=== PATIENT | male | born 1970 | race Caucasian/White ===

== ENCOUNTER 2016-07-13 21:16 | Emergency (ER) | payer BC, OTHER ==
[2016-07-13 22:56] VITALS: BP 123/68; PULSE 89; RESP 18; TEMP 98.1
--- NOTE | 2016-07-13 22:59 | XR ---
EXAM: XR Chest, 2 Views. CLINICAL HISTORY: Reason: Pain TECHNIQUE: Frontal and lateral views of the chest. COMPARISON: No relevant prior studies available. FINDINGS: Lungs: There is fullness in the right hilum. This may represent vasculature accentuated by low lung volume. Early perihilar infiltrate versus underlying lymphadenopathy difficult to exclude. Low lung volumes accentuate pulmonary lung markings. Pleural space: No pleural effusion. No pneumothorax. Heart: Cardiovascular silhouette is within normal limits. Mediastinum: Unremarkable. Bones/joints: Degenerative changes in the thoracic spine. Other findings: Lateral view suboptimal due to patient's arm overlying the anterior aspect of the chest. IMPRESSION: 1. Finding in the right hilar region which may reflect early perihilar infiltrate. This may partly reflect prominent vasculature. Follow-up chest CT recommended to exclude underlying lesion. 2. No effusion. 3. Low lung volume
--- NOTE | 2016-07-13 23:10 | ED ---
URI HPI - General Chief Complaint: Upper Respiratory Infection Stated Complaint: cough Time Seen by Provider: 07/13/16 22:07 Source: patient Mode of arrival: ambulatory Limitations: no limitations - History of Present Illness Initial Comments: Patient is a 46-year-old male chief complaint of a cough for approximately one month. Patient reports that he completed a prescription of amoxicillin 2 weeks ago however, continues to persist. Patient states that whenever he takes a deep breath he feels that he needs to cough. He states that he has had no history of asthma and is a nonsmoker. He denies any blood in his sputum and states it is relatively dry cough. Patient states he's had no fever or chills. He denies any nausea vomiting chest pain or shortness breath. - Related Data Home Medications Medication Instructions Recorded Confirmed Tetrahydrozoline 0.05% Ophth 1 drops OPHTHALMIC DAILY PRN 09/04/14 09/04/14 [Visine Eye Drops] Previous Rx's Medication Instructions Recorded Atorvastatin Calcium [Lipitor] 40 mg PO DAILY #30 tab 09/05/14 Lisinopril [Zestril] 10 mg PO DAILY #30 tab 09/05/14 metFORMIN HCL [Glucophage] 1,000 mg PO AC-BID #60 tab 09/05/14 Albuterol Inhaler [Ventolin Hfa 1 - 2 puff INHALATION Q6HR PRN #1 07/13/16 Inhaler] inhaler Azithromycin [Zithromax Z-pack] 250 mg PO DIRECTED #6 tab 07/13/16 Benzonatate [Tessalon Perles] 100 mg PO TID PRN #15 capsule 07/13/16 Oseltamivir [Tamiflu] 75 mg PO Q12HR #10 cap 07/13/16 methylPREDNISolone Dose Pack 4 mg PO DIRECTED #21 package 07/13/16 [Medrol Dose Pack] Allergies Allergy/AdvReac Type Severity Reaction Status Date / Time No Known Allergies Allergy Verified 07/13/16 21:42 Review of Systems ROS Statement: Those systems with pertinent positive or pertinent negative responses have been documented in the HPI. ROS Other: All systems not noted in ROS Statement are negative. Past Medical History Past Medical History: CVA/TIA, Hypertension Additional Past Medical History / Comment(s): UMBILICAL HERNIA History of Any Multi-Drug Resistant Organisms: None Reported Additional Past Surgical History / Comment(s): corneal transplants Past Anesthesia/Blood Transfusion Reactions: No Reported Reaction Past Psychological History: Anxiety Smoking Status: Never smoker Past Alcohol Use History: Rare Past Drug Use History: None Reported General Exam - General Exam Comments Initial Comments: Patient is a well-appearing 46-year-old male. No acute distress. Limitations: no limitations General appearance: alert, in no apparent distress Head exam: Present: atraumatic, normocephalic, normal inspection Eye exam: Present: normal appearance, PERRL, EOMI. Absent: scleral icterus, conjunctival injection, periorbital swelling ENT exam: Present: normal exam, mucous membranes moist Neck exam: Present: normal inspection. Absent: tenderness, meningismus, lymphadenopathy Respiratory exam: Present: normal lung sounds bilaterally, other (Nonproductive cough). Absent: respiratory distress, wheezes, rales, rhonchi, stridor, chest wall tenderness, accessory muscle use, decreased breath sounds Cardiovascular Exam: Present: regular rate, normal rhythm, normal heart sounds. Absent: systolic murmur, diastolic murmur, rubs, gallop, clicks GI/Abdominal exam: Present: soft, normal bowel sounds. Absent: distended, tenderness, guarding, rebound, rigid Extremities exam: Present: normal inspection, full ROM, normal capillary refill. Absent: tenderness, pedal edema, joint swelling, calf tenderness Back exam: Present: normal inspection Neurological exam: Present: alert, oriented X3, CN II-XII intact Psychiatric exam: Present: normal affect, normal mood Skin exam: Present: warm, dry, intact, normal color. Absent: rash Course Vital Signs 07/13/16 07/13/16 21:38 22:55 Temperature 98.8 F 98.1 F Pulse Rate 100 89 Respiratory 16 18 Rate Blood Pressure 137/72 123/68 O2 Sat by Pulse 97 96 Oximetry Medical Decision Making - Medical Decision Making Patient is a 46-year-old male chief complaint 4 weeks of cough and congestion. Chest x-ray was obtained. There is a history of sick contacts with flu in the household. Patient is a nonsmoker and denies any history of asthma. Patient's chest x-ray did show evidence of perihilar infiltrate. There was starring that if this does not clearly needs to have follow-up imaging such as CT. I will place the patient on azithromycin, Tessalon Perles, albuterol inhaler and a Medrol Dosepak. I advised patient that he needs to follow-up with his primary care physician and repeat an x-ray approximately a week and a half after he is completely antibiotic. Patient understands the treatment plan will comply. Return parameters were discussed. - Lab Data Lab Results 07/13/16 Range/Units 21:40 Influenza Type A RNA Not Detected (Not Detectd) Influenza Type B (PCR) Not Detected (Not Detectd) - Radiology Data Radiology results: report reviewed Finding in the right hilar region may reflect early perihilar infiltrate. This may partially reflect prominent the stretcher. Follow-up chest CT recommended to exclude underlying lesion. No effusion. Low lung volume. Disposition Clinical Impression: Cough Disposition: HOME SELF-CARE Condition: Good Instructions: Upper Respiratory Infection (ED), Chronic Cough (ED) Additional Instructions: Advised to follow up with primary care provider for repeat x-ray after completing antibiotics. Return to emergency department if any alarming signs or symptoms occur. Prescriptions: Albuterol Inhaler [Ventolin Hfa Inhaler] 1 - 2 puff INHALATION Q6HR PRN #1 inhaler PRN Reason: Cough Azithromycin [Zithromax Z-pack] 250 mg PO DIRECTED #6 tab Benzonatate [Tessalon Perles] 100 mg PO TID PRN #15 capsule PRN Reason: Cough Oseltamivir [Tamiflu] 75 mg PO Q12HR #10 cap methylPREDNISolone Dose Pack [Medrol Dose Pack] 4 mg PO DIRECTED #21 package Referrals: Olegario Schuster III, MD [Primary Care Provider] - 1-2 days Time of Disposition: 23:02
== END 2016-07-13 23:16 | disposition home or self-care (01) ==
LOC: EC 21:16
DX: R05 Cough (principal); R91.8 Other nonspecific abnormal finding of lung field; I10 Essential (primary) hypertension; Z86.73 Personal history of transient ischemic attack (TIA), and cerebral infarction without residual deficits; Z79.899 Other long term (current) drug therapy
CPT/HCPCS: 71020; 87502; 99283

== ENCOUNTER → 2016-07-29 | Outpatient (CLI) | payer OTHER ==
[2016-07-29 14:39] LABS: Blood Urea Nitrogen 16 mg/dL (9-20); Non-African American GFR(MDRD) >60 (>60 ml/min/1.73 sqM)
--- NOTE | 2016-07-29 17:53 | CT ---
EXAMINATION TYPE: CT chest w con DATE OF EXAM: 07/29/2016 4:42 PM COMPARISON: Previous radiograph dated 07/13/2016. HISTORY: Pt states of cough/SOB x3 months. CT DLP: 825 mGycm Automated exposure control for dose reduction was used. CONTRAST: CT scan of the chest is performed with IV Contrast, patient injected with 100 mL of Omnipaque 300. FINDINGS: The lungs are clear. There is no significant axillary, mediastinal or hilar adenopathy. There is no pleural or pericardial fluid. The heart is not enlarged. Within the abdomen, there is fatty infiltration of the liver. Visualized upper abdominal structures a re otherwise normal. This hypertrophic spondylosis within the spine. IMPRESSION: 1. NO SIGNIFICANT INTRATHORACIC ABNORMALITY. 2. DEGENERATIVE CHANGE IN THE SPINE. 3. FATTY INFILTRATION OF THE LIVER.
== END | disposition home or self-care (01) ==
LOC: RADCTMAIN 14:15
PROVIDERS: ATTEND Family Medicine
DX: R91.8 Other nonspecific abnormal finding of lung field (principal)
CPT/HCPCS: 82565; 84520; 71260; 36415; Q9967

== ENCOUNTER → 2018-08-22 | Outpatient (CLI) | payer OTHER | END | disposition home or self-care (01) | LOC: RADCTMAIN 13:21 | PROVIDERS: ATTEND Family Medicine | DX: Z53.9 Procedure and treatment not carried out, unspecified reason (principal) ==

== ENCOUNTER → 2018-08-28 | Outpatient (CLI) | payer OTHER ==
--- NOTE | 2018-08-28 09:32 | US ---
EXAMINATION TYPE: US abdomen complete DATE OF EXAM: 08/28/2018 COMPARISON: NONE CLINICAL HISTORY: R94.5 abnormal liver function test. Abnormal liver function test EXAM MEASUREMENTS: Liver Length: 17.6 cm Gallbladder Wall: 0.2 cm CBD: 0.4 cm Spleen: 12.3 cm Right Kidney: 12.9 x 5.4 x 6.1 cm Left Kidney: 13.2 x 6.8 x 6.6 cm Difficult and limited study due to patient body habitus Pancreas: obscured by overlying midline bowel gas Liver: There is increased echogenicity of the hepatic parenchyma with diminished visualization of the portal triads most commonly relating to hepatic steatosis and limiting evaluation for underlying hep atic masses. Gallbladder: wnl Evidence for sonographic Epstein's sign: no CBD: wnl Spleen: wnl Right Kidney: wnl Left Kidney: wnl Upper IVC: wnl Abd Aorta: visualized portions wnl, partially obscured by overlying midline bowel gas The intrahepatic portion of the IVC and proximal abdominal aorta are within normal limits. There is no evidence of cholelithiasis. Common bile duct is unremarkable. The visualized portions of the betts creas are homogenous. The spleen is unremarkable. Kidneys are symmetric and free of hydronephrosis. No renal lesions are seen. IMPRESSION: Findings most commonly related to hepatic steatosis. Correlate with liver function tests results. Portions of the abdominal aorta or pancreas are scattered by overlying bowel gas.
== END | disposition home or self-care (01) ==
LOC: RADUSMAIN 08:34
PROVIDERS: ATTEND Family Medicine
DX: R94.5 Abnormal results of liver function studies (principal)
CPT/HCPCS: 76700

== ENCOUNTER → 2021-05-21 | Outpatient (CLI) | payer OTHER ==
[~2021-05-21] MED LIST: SODIUM CHLORIDE 0.9% 50 ML IVPB ONE; SODIUM CHLORIDE 0.9% 500 ML 500 ML in EMPTY BAG 1 BAG IV PRN; SOTROVIMAB (EUA) 500 MG in SODIUM CHLORIDE 0.9% 100 ML IVPB ONE
[2021-05-21 13:56] VITALS: RESP 16; TEMP 98.4
[2021-05-21 15:34] VITALS: BP 107/53; PULSE 92
== END ==
LOC: PROCWHC3 13:11
PROVIDERS: ATTEND Nurse Practitioner Family
DX: U07.1 COVID-19 (principal)
CPT/HCPCS: 96360; Q0247; M0247

== ENCOUNTER → 2022-11-08 | Outpatient (CLI) | payer OTHER ==
--- NOTE | 2022-11-09 08:14 | CT ---
EXAMINATION TYPE: CT brain wo con DATE OF EXAM: 11/08/2022 COMPARISON: 06/01/2012 HISTORY: Memory loss, speech problems x2yrs. CT DLP: 1163.0 mGycm Automated exposure control for dose reduction was used. FINDINGS: Prominent cisterna magna. Ventricular system compatible patient's age midline shift is present. There is very faint minimal hypoattenuation in the white matter ischemia. No midline shift is calvarium is intact. Orbits are symmetric. Minimal changes of chronic sinusitis. Craniocervical junction demonstrates low-lying cerebellar tonsils below foramen magnum sella turcica is normal IMPRESSION: NO ACUTE INTRACRANIAL PROCESS
== END | disposition home or self-care (01) ==
LOC: RADCTMAIN 17:40
PROVIDERS: ATTEND Internal Medicine
DX: R41.83 Borderline intellectual functioning (principal); R41.3 Other amnesia
CPT/HCPCS: 70450

== ENCOUNTER 2023-02-17 10:56 | Day surgery (SDC) | payer OTHER ==
[~2023-02-17 10:56] MED LIST changes: +ACETAMINOPHEN TAB 500 MG TAB PO PRN; +HEPARIN SODIUM,PORCINE/PF 5,000 UNIT/0.5 ML SYRINGE SQ PRN; +HYDROmorphone 0.5 MG/0.5 ML SYRINGE IVP PRN; +LACTATED RINGERS 1,000 ML IV SCH; +LIDOCAINE 1% (10MG/ML) FOR IV START INTRADERMA PRN; +ONDANSETRON 4 MG/2 ML VIAL IVP PRN; -SODIUM CHLORIDE 0.9% 50 ML IVPB ONE; -SODIUM CHLORIDE 0.9% 500 ML 500 ML in EMPTY BAG 1 BAG IV PRN; -SOTROVIMAB (EUA) 500 MG in SODIUM CHLORIDE 0.9% 100 ML IVPB ONE; +droPERidol 5 MG/2 ML VIAL IVP PRN
[2023-02-17] MEDS ORDERED: LACTATED RINGERS 1,000 ML IV ONE ×2 (11:41→14:00)
[2023-02-17 12:07] LABS: Glucose,Whole Blood 90 mg/dL (70-110)
[2023-02-17 12:14] LABS: Basophils % (A) 0 %; Eosinophils # (A) 0.4 k/uL (0-0.7); Eosinophils % (A) 7 %; HGB 15.5 gm/dL (13.0-17.5); Lymphocytes # (A) 1.8 k/uL (1.0-4.8); Lymphocytes % (A) 33 %; MCH 27.9 pg (25.0-35.0); MCHC 32.9 g/dL (31.0-37.0); MCV 84.9 fL (80.0-100.0); Mean Platelet Volume 8.6; Monocytes # (A) 0.3 k/uL (0-1.0); Monocytes % (A) 6 %; Neutrophils # (A) 2.7 k/uL (1.3-7.7); Neutrophils % (A) 50 %; Platelet Count 202 k/uL (150-450); RBC 5.54 m/uL (4.30-5.90); RDW 13.6 % (11.5-15.5); WBC 5.3 k/uL (3.8-10.6)
[2023-02-17 12:27] LABS: African American GFR (CKD) >90 (>60 ml/min/1.73 sqM); Anion Gap 13 mmol/L; Blood Urea Nitrogen 16 mg/dL (9-20); Calcium 9.3 mg/dL (8.4-10.2); Carbon Dioxide 24 mmol/L (22-30); Chloride 103 mmol/L (98-107); Glucose 101 mg/dL (74-99); Non-African American GFR(CKD) >90 (>60 ml/min/1.73 sqM); Potassium 4.5 mmol/L (3.5-5.1); Sodium 140 mmol/L (137-145)
[2023-02-17] MEDS ORDERED: MIDAZOLAM 2 MG/2 ML VIAL IVP ONE (12:29)
[2023-02-17] MEDS ORDERED: fentaNYL (PF) 50 MCG/ML 2 ML AMP IVP ONE ×2 (12:29→12:31)
[2023-02-17] MEDS ORDERED: HEPARIN SODIUM,PORCINE 5,000 UNIT/ML 1 ML VIAL SQ ONE (12:45)
[2023-02-17] MEDS ORDERED: KETOROLAC 15 MG/ML 1 ML VIAL ONE (13:04)
[2023-02-17] MEDS ORDERED: DEXAMETHASONE SOD PHOSPHATE 4 MG/ML 1 ML VIAL ONE (13:04)
[2023-02-17] MEDS ORDERED: fentaNYL (PF) 50 MCG/ML 2 ML AMP ONE (13:04)
[2023-02-17] MEDS ORDERED: ROCURONIUM 10 MG/ML (5 ML VIAL) IV ONE (13:04)
[2023-02-17] MEDS ORDERED: ROPIVACAINE 5 MG/ML 30 ML VIAL ONE (13:04)
[2023-02-17] MEDS ORDERED: NEOSTIGMINE 1 MG/ML 10 ML VIAL ONE (13:04)
[2023-02-17] MEDS ORDERED: SUCCINYLCHOLINE CHLORIDE 200 MG/10 ML VIAL IV ONE (13:04)
[2023-02-17] MEDS ORDERED: LIDOCAINE 1% INJ 10MG/ML (20 ML MDV) ONE (13:04)
[2023-02-17] MEDS ORDERED: PROPOFOL 10 MG/ML 20 ML VIAL IV ONE (13:04)
[2023-02-17] MEDS ORDERED: SODIUM CHLORIDE 0.9% (PF) 10 ML VIAL ONE (13:04)
[2023-02-17] MEDS ORDERED: GLYCOPYRROLATE 0.2 MG/ML 2 ML VIAL ONE (13:04)
--- NOTE | 2023-02-17 13:05 | P.GSHP ---
History of Present Illness H&P Date: 02/17/23 Chief Complaint: Incarcerated umbilical hernia 52-year-old male here for elective umbilical hernia repair. Gradually enlarging in size with the last 8 years. Mild soreness at times. BMI 32. He has lost some weight preoperatively. No tobacco use. Past Medical History Past Medical History: CVA/TIA, Diabetes Mellitus, GERD/Reflux, Hypertension Additional Past Medical History / Comment(s): UMBILICAL HERNIA, 2006 no deficits from cva, fatty liver History of Any Multi-Drug Resistant Organisms: None Reported Past Surgical History: Orthopedic Surgery Additional Past Surgical History / Comment(s): corneal transplants, rt knee arth roscopy, meniscuc tear, Past Anesthesia/Blood Transfusion Reactions: No Reported Reaction Smoking Status: Never smoker Medications and Allergies Home Medications Medication Instructions Recorded Confirmed Type Losartan Potassium 50 mg PO DAILY 09/09/20 02/17/23 History Prednisolone Acetate/Pf 4 drop BOTH EYES BID 09/09/20 02/17/23 History [Prednisolone Acet 1% Eye Drop] metFORMIN HCL [Glucophage] 1,000 mg PO DAILY 09/09/20 02/17/23 History DULoxetine HCL [Cymbalta] 30 mg PO DAILY 02/14/23 02/17/23 History Dulaglutide [Trulicity] 1 dose SQ WE 02/14/23 02/14/23 History Empagliflozin [Jardiance] 10 mg PO DAILY 02/14/23 02/17/23 History Rosuvastatin [Crestor] 40 mg PO DAILY 02/14/23 02/17/23 History Allergies Allergy/AdvReac Type Severity Reaction Status Date / Time No Known Allergies Allergy Verified 02/17/23 11:42 Surgical - Exam Vital Signs Temp Pulse Resp BP Pulse Ox 97.2 F L 66 16 122/79 98 02/17/23 11:44 02/17/23 11:44 02/17/23 11:44 02/17/23 11:44 02/17/23 11:44 Physical exam: General: Well-developed, well-nourished HEENT: Normocephalic, sclerae nonicteric Abdomen: Nontender, nondistended, incarcerated umbilical hernia Extremities: No edema Neuro: Alert and oriented Results - Labs 02/17/23 11:55 02/17/23 11:55 Abnormal Lab Results - Last 24 Hours (Table) 02/17/23 Range/Units 11:55 Creatinine 0.65 L (0.66-1.25) mg/dL Glucose 101 H (74-99) mg/dL Diabetes panel 02/17/23 Range/Units 11:55 Sodium 140 (137-145) mmol/L Potassium 4.5 (3.5-5.1) mmol/L Chloride 103 (98-107) mmol/L Carbon Dioxide 24 (22-30) mmol/L BUN 16 (9-20) mg/dL Creatinine 0.65 L (0.66-1.25) mg/dL Glucose 101 H (74-99) mg/dL Calcium 9.3 (8.4-10.2) mg/dL Calcium panel 02/17/23 Range/Units 11:55 Calcium 9.3 (8.4-10.2) mg/dL Pituitary panel 02/17/23 Range/Units 11:55 Sodium 140 (137-145) mmol/L Potassium 4.5 (3.5-5.1) mmol/L Chloride 103 (98-107) mmol/L Carbon Dioxide 24 (22-30) mmol/L BUN 16 (9-20) mg/dL Creatinine 0.65 L (0.66-1.25) mg/dL Glucose 101 H (74-99) mg/dL Calcium 9.3 (8.4-10.2) mg/dL Adrenal panel 02/17/23 Range/Units 11:55 Sodium 140 (137-145) mmol/L Potassium 4.5 (3.5-5.1) mmol/L Chloride 103 (98-107) mmol/L Carbon Dioxide 24 (22-30) mmol/L BUN 16 (9-20) mg/dL Creatinine 0.65 L (0.66-1.25) mg/dL Glucose 101 H (74-99) mg/dL Calcium 9.3 (8.4-10.2) mg/dL Assessment and Plan (1) Umbilical hernia Narrative/Plan: 52-year-old male with incarcerated umbilical hernia. We'll proceed with open repair with mesh at this time. Risks of bleeding, infection, recurrence, bladder and bowel injury, numbness, nerve injury were discussed with the patient. The patient understands and wishes to proceed. Current Visit: Yes Status: Acute Code(s): K42.9 - UMBILICAL HERNIA WITHOUT OBSTRUCTION OR GANGRENE SNOMED Code(s): 718689871
[2023-02-17] MEDS ORDERED: BUPIVACAINE (PF) 0.25% 30 ML VIAL SQ ONE ×2 (13:25→13:50)
--- NOTE | 2023-02-17 13:32 | P.ANPRN ---
Procedure Note - Anesthesia - Nerve Block Performed Bilateral Erector Spinae Single Time Out Performed: Yes Date of Procedure: 02/17/23 Procedure Start Time: 12:28 Procedure Stop Time: 12:40 Location of Patient: PreOp Indication: Acute Post-Operative Pain, Requested by Surgeon Specifically requested for management of pain by DrTessie: Kyle Arredondo Sedation Type: Sedate with meaningful contact maintained Preparation: Sterile Prep Position: Prone Needle Types: Pajunk Needle Gauge: 21 Ultrasound used to visualize needle placement: Yes Ultrasound used to observe medication spread: Yes Injectate: 0.5% Ropivacaine (see comment for volume) (15 ml +15 ml NS + 4 mg Dexamethason per side) Blood Aspirated: No Pain Paresthesia on Injection Noted: No Resistance on Injection: Normal Image Stored and Saved: Yes Events: Uneventful and Well Tolerated
[2023-02-17 14:23] VITALS: TEMP 97
--- NOTE | 2023-02-17 14:28 | P.OP ---
Date of Procedure: 02/17/23 Procedure(s) Performed: PREOPERATIVE DIAGNOSIS: Incarcerated umbilical hernia POSTOPERATIVE DIAGNOSIS: Same PROCEDURE: Open repair incarcerated umbilical hernia with mesh SURGEON: Dr. Arredondo ANESTHESIA: General OPERATIVE PROCEDURE DETAILS: The patient was placed in the operating table in the supine position. A right sided periumbilical incision was made using the scalpel. The subcutaneous tissues were dissected bluntly and with cautery. The hernia sac was identified. The umbilical attachments to the fascia were divided using electrocautery. The hernia sac was reduced back into the preperitoneal space. The defect in the fascia measured 2 x 1 cm The fat overlying the fascia was dissected. No additional defects were seen. The preperitoneal space was then dissected using blunt dissection and electrocautery. The 4.3 cm ventral ex mesh was placed beneath the fascia and sutured in place using trans-fascial 0 Ethibond sutures. The defect was closed using interrupted vest over pants 0 Ethibond mattress sutures. The subcutaneous tissues were reapproximated using inverted 2-0 & 3-0 Vicryl sutures. The umbilicus was tacked back down to the fascia using a 2-0 Vicryl suture. The skin was closed using 4-0 Monocryl sutures. Skin glue and sterile dressings were then applied. HERNIA CHARACTERISTICS: Length: 2 cm Width: 1 cm Type: Umbilical TYPE OF MESH USED: 4.3cm ventral ex LOCATION OF MESH: Sub-lay FIXATION: 0 Ethibond PREOPERATIVE DISCUSSION ON SMOKING CESSASTION: Yes PREOPERATIVE DISCUSSION ON MORBID OBESITY: Yes PREOPERATIVE DISCUSSION ON APPROPRIATE USE OF NARCOTIC USE: Yes PREOPERATIVE EDUCATION: Multi Modal, Smoking Cessation and Weight Loss with BMI over 35. DISPOSITION: Stable to recovery room
[2023-02-17] MEDS ORDERED: ACETAMINOPHEN TAB 325 MG TAB PO SCH (14:30)
[2023-02-17 15:37] VITALS: BP 104/61; PULSE 86; RESP 18
[2023-02-17] MEDS ORDERED: IBUPROFEN 600 MG TAB PO SCH (17:30)
== END 2023-02-17 16:20 | disposition home or self-care (01) ==
LOC: OR 10:56
PROVIDERS: ATTEND Surgery
DX: K42.0 Umbilical hernia with obstruction, without gangrene (principal); E11.9 Type 2 diabetes mellitus without complications; I10 Essential (primary) hypertension; K21.9 Gastro-esophageal reflux disease without esophagitis; K76.0 Fatty (change of) liver, not elsewhere classified; Z68.32 Body mass index [BMI] 32.0-32.9, adult; Z86.73 Personal history of transient ischemic attack (TIA), and cerebral infarction without residual deficits; Z79.84 Long term (current) use of oral hypoglycemic drugs; Z79.899 Other long term (current) drug therapy
CPT/HCPCS: 64999; 80048; 85025; 49592; C1781; J2250; J0330; J1644; J1100; J2710; J0690; J2405; J2001; J3010; J2795; J1885; J2704; J0665

== ENCOUNTER → 2024-10-17 | Outpatient (CLI) | payer MEDICARE ==
--- NOTE | 2024-10-17 08:55 | US ---
EXAMINATION TYPE: US carotid duplex BILAT DATE OF EXAM: 10/17/2024 COMPARISON: NONE CLINICAL INDICATION: Male, 54 years old with history of I65.23 OCCLUSION AND STENOSIS OF BILATERAL CA ROTID; stenosis Additional History: .... TECHNIQUE: Grayscale, color Doppler and spectral Doppler evaluation of the bilateral carotid systems and vertebral arteries. Indirect Doppler criteria was utilized. 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 Spectral waveforms are within normal limits. IMPRESSION: Right: Less than 50% stenosis of the carotid bifurcation. Left: Less than 50% stenosis of the carotid bifurcation. Criteria for Assigning % of Stenosis / Diameter reduction (Estimation based on the indirect measurements of the internal carotid artery velocities (ICA PSV). 1. Normal (no stenosis)=ICA PSV < 180 cm/s: ratio < 2.0: ICA EDV<40 cm/s. 2. Less than 50% stenosis=ICA PSV < 180 cm/s: ratio < 2.0: ICA EDV<40 cm/s. 3. 50 to 69% stenosis=ICA PSV of 180 to 230 cm/s: ration 2.0 ? 4.0: ICA EDV 40-100 cm/s. PSV 125-180 cm/sec and ICA/CCA PSV Ratio ? 2.0 is also consistent with 50-69% stenosis 4. Greater than 70% stenosis to near occlusion= ICA PSV > 230 cm/s: ratio > 4.0: ICA EDV > 100 cm/s. 5. Near occlusion= ICA PSV velocities may be low or undetectable: variable ratio and ICA EDV. 6. Total occlusion=unable to detect flow. [facility], , 10/17/2024 8:52 AM
== END | disposition home or self-care (01) ==
LOC: RADUSWWP 07:11
PROVIDERS: ATTEND Internal Medicine
DX: I65.23 Occlusion and stenosis of bilateral carotid arteries (principal)
CPT/HCPCS: 93880